=== PATIENT | male | born 1975 | race Caucasian/White ===

== ENCOUNTER 2022-11-24 05:26 | Emergency (ER) | payer BC ==
[~2022-11-24] VITALS: Ht 172.7 cm; Wt 63.6 kg
[2022-11-24] MEDS ORDERED: LIDOcaine Viscous 15ml cup MM ONE (06:10)
[2022-11-24] MEDS ORDERED: mag hydrox/Alum hydrox/simeth 30ml oral suspension PO ONE (06:10)
[2022-11-24] MEDS ORDERED: dicyclomine 10 MG capsule PO ONE (06:10)
[2022-11-24] MEDS ORDERED: ondansetron 4mg rapidly disintigrating tab PO ONE (06:10)
[2022-11-24 06:49] LABS: BASOPHILS % (AUTO) 0.3 % (0-1); EOSINOPHILS % (AUTO) 0.1 % (0-6); HEMATOCRIT 43.7 % (42.0-52.0); LYMPHOCYTES # (AUTO) 0.5 X10'3 (1.1-4.8); LYMPHOCYTES % (AUTO) 5.2 % (21-51); MEAN CORPUSCULAR HEMOGLOBIN 30.7 PG (27.0-31.0); MEAN CORPUSCULAR HGB CONC 34.3 g/dL (33.0-36.5); MEAN CORPUSCULAR VOLUME 89.5 FL (78-98); MEAN PLATELET VOLUME 9.4 FL (7.4-10.4); MONOCYTES # (AUTO) 0.3 X10'3 (0-0.9); MONOCYTES % (AUTO) 2.5 % (2-12); NEUTROPHILS # (AUTO) 9.5 X10'3 (1.8-7.7); NEUTROPHILS % (AUTO) 91.9 % (42-75); PLATELET COUNT 263 X10'3 (140-440); RED BLOOD COUNT 4.88 X10'6 (4.70-6.10); RED CELL DISTRIBUTION WIDTH 13.4 % (11.5-14.5); WHITE BLOOD COUNT 10.3 X10'3 (4.5-11.0)
[2022-11-24 07:04] LABS: GLUCOSE 156 MG/DL (70-104); POTASSIUM 3.6 MMOL/L (3.5-5.1); SODIUM 135 MMOL/L (135-145)
[2022-11-24 07:05] LABS: ALANINE AMINOTRANSFERASE 25 U/L (12-78); ALBUMIN 4.4 G/DL (3.4-5.0); ALBUMIN/GLOBULIN RATIO 1.3 (1.1-1.5); ALKALINE PHOSPHATASE 80 IU/L (46-116); ANION GAP 16 (8-16); ASPARTATE AMINO TRANSFERASE 22 U/L (10-37); BILIRUBIN,TOTAL 0.9 MG/DL (0.1-1.0); BLOOD UREA NITROGEN 19 MG/DL (7-18); BUN/CREATININE RATIO 18.1 (5.4-32.0); CALCIUM 9.9 MG/DL (8.5-10.1); CHLORIDE 99 MMOL/L (99-107); CREATININE 1.05 MG/DL (0.60-1.10); LIPASE < 50 U/L (73-393); TOTAL CARBON DIOXIDE 19.7 MMOL/L (24-32); TOTAL PROTEIN 7.8 G/DL (6.4-8.2); eGFR 75 ML/MIN
[2022-11-24] MEDS ORDERED: normal saline 1000ML IV soln IVB ONE (07:10)
[2022-11-24 09:50] LABS: CLARITY,URINE SLIGHTLY CLOUDY (Clear); COLOR,URINE YELLOW (Yellow); GLUCOSE, URINE NEGATIVE (Neg); KETONES,URINE >=80 mg/dl (Neg); LEUKOCYTE ESTERASE ,URINE NEGATIVE (Neg); NITRITES, URINE NEGATIVE (Neg); OCCULT BLOOD,URINE TRACE-INTACT (Neg); PH,URINE 6.5 (4.8-8.0); PROTEIN,URINE TRACE mg/dl (Neg); UROBILINOGEN,URINE 0.2 E.U/dL (0.2-1.0)
[2022-11-24 09:52] LABS: UA COLLECTION TYPE CLN CATCH MIDSTREAM
[2022-11-24 09:59] LABS: BACTERIA,URINE FEW /HPF (Neg); MUCUS STRANDS MANY /LPF (Neg); RBC,URINE 0-2 /HPF (0-2); SQUAMOUS EPITHELIAL CELL,UR FEW /LPF (FEW)
[2022-11-24] MEDS ORDERED: SUCR1TAB PO (10:00)
[2022-11-24] MEDS ORDERED: ONDA4TAB12 PO (10:00)
[2022-11-24] MEDS ORDERED: CefTRIAXone 2gm/D5W 50ml BAG 50 ML IV ONE (10:05)
[2022-11-24 11:21] VITALS: BP 127/68
== END 2022-11-24 11:23 | disposition home or self-care (01) ==
LOC: ER 05:27
DX: N39.0 Urinary tract infection, site not specified (principal); R11.2 Nausea with vomiting, unspecified; R10.13 Epigastric pain; K21.9 Gastro-esophageal reflux disease without esophagitis; F12.90 Cannabis use, unspecified, uncomplicated; Z79.899 Other long term (current) drug therapy
CPT/HCPCS: 36415; 80053; 81001; 83605; 83690; 84145; 85025; 96361; 96365; 99284; J0696; J7030

== ENCOUNTER 2025-03-24 14:39 | Emergency (ER) | payer BC ==
[~2025-03-24] VITALS: Ht 172.7 cm; Wt 62.8 kg
[~2025-03-24 14:39] MED LIST: ONDA-243 PO; SUCR1TAB PO
--- NOTE | 2025-03-24 14:57 | Physician Documentation ---
History of Present Illness ~ Chief Complaint: Leg Pain Stated Complaint: L LEG/FOOT PAIN Time Seen by MD: 15:27 HPI 49-year-old male presents to the emergency department complaining of low back pain with radiation down to the left lower leg, no injuries reported, no loss of bowel or bladder function or saddle anesthesia. Patient has a history of back pain in the past it seemed to resolve on its own. Onset: spontaneous Mechansim: no injury Circumstances: spontaneous onset Tetanus witin 5 years: Yes Severity: mild Weight Bearing: able to bear weight Pain/Injury Location: left leg Medication Reconciliation Allergies: Coded Allergies: No Known Allergies (Unverified , 03/24/25) Scheduled PRN ONDANSETRON ODT 4mg tablet (Ondansetron Odt), 1 TABLET PO Q6H PRN for nausea/vomiting Sucralfate (Sucralfate), 1 GM PO TID PRN for pain Past Medical History Past Medical History: GERD, Hemorrhoids Past Surgical History: other Alcohol Use: None Drug Use: marijuana Lives In: Home Physical Exam Vital Signs: Temperature: 97.8, Source: Temporal, Heart Rate: 68, Respiratory Rate: 16, BP: 128/82, Pulse Oximetry: 97, Weight: 62.800 Oxygen Flow Rate: 0 Progress Results/Orders Results/Orders Orders - GUY COX DO Lumbar Spine Limited (03/24/25 15:31) Completed Orders - GUY COX DO Lumbar Spine Limited (03/24/25 15:31) Vital Signs 03/24/25 03/24/25 03/24/25 14:44 15:12 15:36 Temp 97.8 Pulse 68 58 Resp 16 18 B/P (MAP) 128/82 125/82 (96) Pulse Ox 97 98 O2 Flow Rate 0 0 Re-Evaluation Re-Evaluation : Progress 4:20 p.m. discussed x-ray findings with the patient, we will try muscle relaxers and anti-inflammatories as well as Lidoderm patch and heat and ice at home, patient is agreeable with this disposition EKG/XRAY/CT/US/VASC/MRI Bone/Soft Tissue X-Ray (Spine) : Additional Comment [facility] [address] , [place], [place] - [address] DIAGNOSTIC RADIOLOGY Patient: REBEL DELGADO Medical Record: [id number] [facility] : 1975, Age: 49 Sex: Male Location: ER Patient Status: REG ER Service Date/Time: 03/24/25 153 Ordering Physician: GUY COX DO Exam: LUMBAR SPINE LIMITED EXAM: DI LUMBAR SPINE LIMITED INDICATION: left sciatica COMPARISON: None TECHNIQUE: 3 views of the lumbar spine were obtained. Findings: There is no evidence of an acute fracture, spondylolysis, or spondylolisthesis. The vertebral body heights and disc spaces are well-maintained. No blastic or lytic lesions are appreciated. No radiopaque foreign bodies. No superficial soft tissue abnormalities. Impression: 1. No acute osseous abnormality. Electronically Signed by:MELISSA WILSON DO Date & Time: 03/24/251599 Dictated by: MELISSA WILSON DO Dictation date and time: 03/24/251599 Primary Care Provider: NO PRIMARY CARE PROVIDER cc: GUY COX DO ~ Medical Decision Making Additional Comment Differential diagnosis for low back pain include sciatica, spinal abscess, nerve impingement syndrome, spinal stenosis, infection, electrolyte abnormalities, fracture among others. Departure Disposition: HOME / SELF CARE / HOMELESS Impression: Primary Impression: Sciatica Additional Impression: Leg cramps Condition: Stable Discharge Instructions: Sciatica, RICE Therapy for Routine Care of Injuries, [id number] Referrals: NO PRIMARY CARE PROVIDER (PCP) Prescriptions Ibuprofen (Ibuprofen) 600 Mg Tablet 1 TAB PO Q8H PRN for q8, #30 TAB Prov: GUY COX DO 03/24/25 Cyclobenzaprine* (Cyclobenzaprine*) 10 Mg Tablet 1 TAB PO Q8H for muscle spasms for 10 Days, #30 TAB 0 Refills Prov: GUY COX DO 03/24/25 Education Educated: Patient Educated regarding: diagnosis, treatment, prognosis Additional Comment Medical Screen Exam History: This is a 49-year-old male who presents with three weeks of pain to his left lateral buttock and hip that radiates down his leg, patient reports no new weakness or numbness in legs, or no loss of bowel or bladder control. Exam: VITALS: Reviewed and as above. GENERAL: Alert, nontoxic appearing, no apparent distress. RESPIRATORY: No increased work of breathing, no respiratory distress, speaking in full clear sentences MSE performed in triage and patient returned to ED lobby by nursing staff The note accurately reflects work and decisions made by me.TANIYA Mcclellan 03/24/25 14:57 Signature Scribe Signature: None Attestation: Dictated by myself JUVE ARANA Mar 24, 2025 14:57 GUY COX DO Mar 24, 2025 16:10
--- NOTE | 2025-03-24 16:03 | RADIOLOGY REPORT ---
EXAM: DI LUMBAR SPINE LIMITED INDICATION: left sciatica COMPARISON: None TECHNIQUE: 3 views of the lumbar spine were obtained. Findings: There is no evidence of an acute fracture, spondylolysis, or spondylolisthesis. The vertebral body heights and disc spaces are well-maintained. No blastic or lytic lesions are appreciated. No radiopaque foreign bodies. No superficial soft tissue abnormalities. Impression: 1. No acute osseous abnormality.
[2025-03-24] MEDS ORDERED: IBUP-1985 PO (16:31)
[2025-03-24] MEDS ORDERED: CYCL-1 PO (16:31)
[2025-03-24 16:55] VITALS: BP 126/85; PULSE 58; RESP 18; TEMP 97.8; O2SAT 99
== END 2025-03-24 16:58 | disposition home or self-care (01) ==
LOC: ER 14:40
DX: M54.32 Sciatica, left side (principal); R25.2 Cramp and spasm; F12.90 Cannabis use, unspecified, uncomplicated; K21.9 Gastro-esophageal reflux disease without esophagitis
CPT/HCPCS: 72100; 99284

== ENCOUNTER 2025-04-20 06:18 | Emergency (ER) | payer BC ==
[~2025-04-20] VITALS: Ht 172.7 cm; Wt 62.0 kg
[~2025-04-20 06:18] MED LIST changes: +CYCL-1 PO; +IBUP-1985 PO
[2025-04-20 06:21] VITALS: TEMP 98
--- NOTE | 2025-04-20 06:30 | Physician Documentation ---
History of Present Illness Chief Complaint: Abdominal Pain Stated Complaint: ABD PAIN Time Seen by MD: 06:24 HPI This is a 49-year-old gentleman who comes in for evaluation of constipation for the last several days. He recently has been started on naproxen cyclobenzaprine for low back pain, he feels that this is medications make him constipated. Did not attempt to treat constipation. No bowel movement for the last two days, no flatus for the last two days. Reports lower abdominal pain without any nausea or vomiting. No diarrhea. Reports chronic left hip pain, known arthritis, but now pain radiates down his lower leg posteriorly. Denies any chest pain or difficulty breathing. Denies concerns for tobacco, alcohol or illicit substances use Medication Reconciliation Allergies: Coded Allergies: No Known Allergies (Unverified , 03/24/25) Scheduled Cyclobenzaprine* (Cyclobenzaprine*), 1 TAB PO Q8H Scheduled PRN Ibuprofen (Ibuprofen), 1 TAB PO Q8H PRN for q8 ONDANSETRON ODT 4mg tablet (Ondansetron Odt), 1 TABLET PO Q6H PRN for naus ea/vomiting Sucralfate (Sucralfate), 1 GM PO TID PRN for pain Past Medical History Past Medical History: GERD, Hemorrhoids Past Surgical History: other Alcohol Use: None Drug Use: marijuana Lives In: Home Review of Systems ROS 10 point review of systems was performed and unless noted above in HPI is negative for acute process/complaint. Physical Exam Vital Signs: Temperature: 98.0, Heart Rate: 73, Respiratory Rate: 16, BP: 137/95, Pulse Oximetry: 99, Weight: 62.000 Oxygen Flow Rate: 0 Physical Exam GENERAL: Awake, alert, oriented, GCS 15, no apparent distress, non-toxic appearing, answers questions, follows commands appropriately. Examined in triage, placed in bed 11. HEENT: Atraumatic, normocephalic, pupils equal, extraocular muscles intact, sclerae anicteric, mucus membranes moist, oropharynx is clear, no stridor. NECK: supple, full active range of motion, trachea midline, no thyromegaly, no lymphadenopathy, no JVD. CARDIOVASCULAR: regular rate/rhythm, no murmurs/gallops/rubs, Pulses are 2+ in all extremities and symmetric. Capillary refill less than 2 seconds. PULMONARY: Nonlabored, good air movement ,no respiratory distress, speaking in full sentences, clear to auscultation bilaterally, no wheezing, no ronchi, no rales, no accessory muscle use. GASTROINTESTINAL: Soft, non-tender, non-distended, normal active bowel sounds, no organomegaly, no pulsatile masses, no CVA tenderness. NEUROLOGIC: Lucid with normal mental status. Normal facial symmetry. Moves all extremities symmetrically and with purpose. No truncal ataxia. Speech is fluid without evidence of dysarthria or aphasia, no focal deficits appreciated. MUSCULOSKELETAL: There is full range of motion of all extremities. There is no joint pain or joint swelling or joint erythema. There is no muscle pain or tenderness or swelling. EXTREMITIES: warm, well-perfused, no cyanosis, no clubbing, no edema, no acute deformities. Skin: warm, dry, no rashes or lesions, no jaundice, no petechiae orpurpura. No ecchymosis. PSYCHIATRIC: Normal affect, normal insight, normal concentration. Focused exam: [] Progress Results/Orders Results/Orders Orders - KEIRY MATHEWS DO Cbc/Diff (04/20/25 06:24) ESR (04/20/25 06:24) Lipase (04/20/25 06:24) C-Reactive Protein (04/20/25 06:24) Ct Abdomen Pelvis (04/20/25 06:24) CMP (04/20/25 06:24) Ct L Spine Reconstructiion (04/20/25 06:24) Vital Signs 04/20/25 06:21 Temp 98.0 Pulse 73 Resp 16 B/P (MAP) 137/95 Pulse Ox 99 O2 Flow Rate 0 Medical Decision Making Findings Facility Status: ED Holds, RME process The plan was discussed with the patient, who demonstrates clear understanding of the plan and is in agreement with the plan unless otherwise noted in the chart. All questions have been answered, all concerns were addressed unless otherwise documented. I was available throughout their ED stay for frequent reassessment and questions. Differential Diagnoses (considered and possible or likely): [Constipation, less likely hernia, less likely obstruction, chronic left hip pain with a without sciatica, lumbar spine radiculopathy. Clinically no evidence of cauda equina or conus medullaris.] ??Differential Diagnoses (considered and unlikely, not requiring evaluation currently): [See above] MDM Data Please see HPI for the following: Independent Historians and external Records Review. Historian: [Patient] Independent Historians: ?[Record review] Medication Management: [Reviewed medication list] Social History and determinants: [Reviewed] Please see the body of the note for the following: Any independent interpretations of ECG, imaging studies. All vitals signs/haemodynamics, ordered tests were independently reviewed and interpreted by myself. Nursing triage complaint and vitals reviewed, additional nursing notes were reviewed as available and I agree unless otherwise noted or documented in contradiction in the chart Vital Signs: Independently reviewed Labs: Independently interpreted Imaging: Independently interpreted Old Medical Records: Independently reviewed, see HPI for relevant summary and information Pulse Oximetry: [96%] interpreted as [normal on room air] by me [Administration Vice President: [Regular Rate, Regular rhythm, no ectopy, NSR] reviewed and interpreted by me] Additionally notably showing: [Hemodynamics reviewed. The patient isn't febrile, not tachycardic, no evidence of hypotension respiratory distress. CBC normal. Metabolic panel is essentially unremarkable. Minimally elevated lipase concerning for mild pancreatitis as a cause of his pain. Advanced imaging of the abdomen showed no evidence of bowel obstruction. Constipation noted.] Tests considered but not ordered include: [Not applicable] Social Determinants of Health Impact: Patient was evaluated in [facility], [facility] [place] to healthcare due to below par ratio of patient to medical providers. [] Comorbid Conditions Impacting Present Evaluation and Care/Treatment: [None reported with the patient] Management Discussions with other Healthcare Providers: [] Treatment and Disposition Medication Management (Given or considered): []. See EMR for details Consideration for Hospitalization/Escalation/Deescalation of Care: Admission for observation has been considered, [however the patient is able to tolerate p.o., their symptoms are controlled, they are able to rely on oral medications, and their chief complaint/diagnosis can be managed on outpatient basis.] ?ED Course:?[Patient had a bowel movement and felt markedly better] ?Shared decision making:? Patient is hemodynamically stable for discharge home with follow with their primary care provider. [ ] Specific and cautious return precautions provided and discussed with full understanding. Any incidental findings were also discussed and follow up recommendations given. [] All questions answered. Patient/family were able to verbalize back return precautions. Patient/family agree to plan. Copies of imaging and laboratory studies were provided. Code status:?FULL Please see the full Electronic Medical Record for full details of nursing documentation, medications list, other records of complete past medical history and conditions, vital signs, laboratory studies, and any radiologic study interpretations by radiologists. Portions of this note were completed using [employer] dictation software and as a result there may exist minor errors in spelling. I have reviewed elements of past family and social history and agree as included in note. Departure Disposition: 01 HOME / SELF CARE / HOMELESS Impression: Primary Impression: Constipation Condition: Improved Discharge Instructions: Constipation, Adult Referrals: NO PRIMARY CARE PROVIDER (PCP) Education Educated: Patient Educated regarding: diagnosis, treatment, prognosis, need for follow up Signature Scribe Signature: No scribe Attestation: This note accurately reflects clinical decisions, work performed by myself, DO BISI Moise NICHOLAS M DO Apr 20, 2025 06:30
[2025-04-20 06:33] VITALS: RESP 14
[2025-04-20 07:25] LABS: MEAN PLATELET VOLUME 9.3 FL (7.4-10.4); RED CELL DISTRIBUTION WIDTH 13.5 % (11.5-14.5)
[2025-04-20] MEDS ORDERED: iohexol 300mg/ml 100ml inj. ONE (07:45)
[2025-04-20 07:49] LABS: CREATININE 1.02 MG/DL (0.60-1.10); TOTAL CARBON DIOXIDE 26.2 MMOL/L (24-32); eCRCL 75 ML/MIN; eGFR 77 ML/MIN
--- NOTE | 2025-04-20 08:43 | RADIOLOGY REPORT ---
CLINICAL INFORMATION: Lower abdominal pain, constipation. Bowel obstruction. TECHNIQUE: Axial CT images of the abdomen and pelvis were obtained after the uneventful administrati on of 100 mL Omnipaque 300 IV contrast. Coronal and sagittal reformatted images were obtained, review ed, and stored. All CT scans at this medical facility are performed using dose modulation techniques as appropriate to a performed exam including the following: Automated exposure control was utilized; adjustment of the MA and/or KV according to patient size; and use of iterative reconstruction [employer] ue. CTDIvol = 10.12 mGy DLP = 471.85 mGy-cm COMPARISON: None FINDINGS: Lung bases: Lung bases are clear. Liver: Mild hepatic steatosis. Biliary: No calcified gallstones or biliary ductal dilatation. Spleen: Unremarkable. Pancreas: Unremarkable. No inflammatory changes, ductal dilatation, or mass identified. Adrenal glands: Unremarkable. No mass. Kidneys: No hydronephrosis or mass. Aorta/Vascular: No aneurysm or significant calcification. Retroperitoneum: No mass or lymphadenopathy. Bowel/mesentery: Nonspecific nondilated fluid-filled small bowel loops. No small bowel obstruction. A ppendix is visualized and appears unremarkable. Moderate stool in the colon. Pelvic organs: Grossly unremarkable. Bladder: Moderate circumferential thickening of the bladder wall, may be partly due to underdistentio n. Abdominal wall: No mass or hernia. Bones: No acute fracture or focal intraosseous lesion. IMPRESSION: 1. Nonspecific nondilated fluid-filled small bowel loops. Findings may be seen with ileus or enteriti s in the appropriate clinical setting. No small bowel obstruction. 2. Moderate stool in the colon. 3. Normal-appearing appendix. 4. Mild hepatic steatosis. 5. Moderate circumferential thickening of the bladder wall, may be partly due to underdistention. Cor relate clinically to exclude cystitis. 6. Additional findings as described above.
[2025-04-20 09:09] VITALS: BP 154/95; PULSE 58; O2SAT 99
== END 2025-04-20 10:52 | disposition home or self-care (01) ==
LOC: ER 06:18
DX: K59.00 Constipation, unspecified (principal); K21.9 Gastro-esophageal reflux disease without esophagitis; F12.90 Cannabis use, unspecified, uncomplicated; Z79.899 Other long term (current) drug therapy
CPT/HCPCS: 36415; 74177; 80053; 83690; 85025; 85651; 86140; 99285; Q9967

== ENCOUNTER 2025-06-08 15:54 | Outpatient (CLI) | payer BC ==
[~2025-06-08 15:54] MED LIST changes: -IBUP-1985 PO; +IBUP600T52 PO
[2025-06-11 05:13] LABS: % FREE PSA 43.8 % (.); PROSTATE SPECIFIC AG, SERUM 0.8 ng/mL (0.0-4.0)
== END 2025-06-08 23:59 | disposition home or self-care (01) ==
LOC: RAD 15:54
PROVIDERS: ATTEND General Practice
DX: Z12.5 Encounter for screening for malignant neoplasm of prostate (principal)
CPT/HCPCS: 36415; 84153; 84154